=== PATIENT | female | born 1985 | race Hispanic/Latino ===

== ENCOUNTER 2016-12-27 20:55 | Emergency (ER) | payer OTHER ==
[~2016-12-27] VITALS: Ht 154.9 cm; Wt 90.9 kg
[~2016-12-27 20:55] MED LIST: Docusate Sodium PO; Ibuprofen PO; Oxycodone/Acetaminophen PO; PREN1TAB80 PO
[2016-12-27 21:00] VITALS: BP 137/85; PULSE 79; RESP 20; O2SAT 99
--- NOTE | 2016-12-27 21:56 | ED.REPORT ---
HPI-Eye Problem Date of Service December 27, 2016 ED Provider: Dr. Arpit Whitlock D.O. A 31 year old female with a history of hypertension presents to the ED with left eye redness onset this morning upon awakening. Associated symptoms include left eye pain and photophobia. The patient wore her contacts yesterday but did not sleep in them. She denies other symptoms. Nursing Notes Stated Complaint: LEFT EYE INFECTION Chief Complaint: Eye Nursing Notes Reviewed: Yes Allergies: Coded Allergies: No Known Allergies (Unverified Allergy, Unknown, 08/29/14) Scheduled Vits W-Ca,Fe,FA(<1Mg) ( Vitamins) 1 Each Tablet 1 EACH PO DAILY Scheduled PRN ([Docusate Sodium]) 100 MG CAPSULE 100 MG PO BID PRN PRN For Constipation ([Ibuprofen]) 800 MG TABLET 800 MG PO Q8 PRN PRN For Pain ([Oxycodone/Acetaminophen]) 1 TAB TABLET 1-2 TAB PO Q4H PRN PRN For Pain General Time Seen by MD: 21:56 Chief Complaint Left eye affected, Redness Hx Obtained From: Patient Arrived By: Walk-in Sudden in Onset?: Yes Onset Occurred: 21 - 23 hours ago Symptom Duration: Since onset Location: : Eye left Quality: Painful Severity: Current: Moderate Severity: Maximum: Moderate Pertinent Negative: Relieved by nothing Related History: Reports: Contact lens use Immunizations: Unknown Recent Healthcare: No recent doctor visit Past Medical History Past Medical History Reports: Hypertension Past Surgical History none reported Smoking History Never Smoker Social History Alcohol Use: Denies alcohol use Drug Use: Denies drug use Other Social History: Good social support Ambulatory Status Independent Review of Systems Constitutional: Denies: Fever Eyes: Reports: Eye pain left, Photophobia, Redness left Complete sys rev & neg: except as marked. Respiratory: Denies: Non-productive cough, Shortness of breath GI: Denies: Diarrhea, Vomiting Physical Exam Initial Vital Signs Vital Signs (First) Date Time Temp Pulse Resp B/P Pulse Ox O2 Delivery O2 Flow Rate FiO2 12/27/16 21:00 36.8 79 20 137/85 99 Room Air Initial VS: Reviewed Neck: Supple, Full range of motion Skin: Warm, Dry, No cyanosis Neurologic: Alert, Oriented, Nonfocal Psychiatric: Mood/affect normal, Behavior normal, Normal thought content Head / Eyes: Atraumatic, Normocephalic, PERRL Conjunctiva / Sclera: Positive: Injected left, Negative: Chemosis L Trauma - General: Positive: Abrasion (Medial conjunctiva) No evidence of angle closure glaucoma No cells in anterior chamber Complete relief of pain with proparacaine drops General/Constitutional: Awake, Alert ENT: Airway patent, Mucous membranes moist Re-Eval/Medical Decision Med Decision/Clinical Course No corneal abrasion or ulceration. No evidence of keratitis or ecchymosis. She has conjunctivitis. There is a defect in the medial conjunctiva probably where she pulled her contact lens out. I do with things going to do well with topical anti-infectives. She will refrain from wearing contacts until cleared by ophthalmology. Topical Vigamox. Close outpatient follow-up. No cells in the anterior chamber. Source of Hx: Old records Re-Evaluation/Progress : Time of Eval: 22:30 Patient Status: Condition improved Re-Evaluation/Progress Note: Additional physical exam performed. Discussed with patient physical exam findings, diagnosis, and plan for discharge. Follow-up and return to the ER instructions given. Patient agrees with plan for care and all questions were addressed. Counseled Regarding: Diagnosis, Need for follow-up, When/why to return to ED Discharge & Departure Primary Impression: Conjunctivitis Conjunctivitis type: acute Acute conjunctivitis type: bacterial Laterality : left Qualified Code: H10.32 - Unspecified acute conjunctivitis, left eye Additional Impression: Conjunctival abrasion Encounter type: initial encounter Laterality: left Qualified Code: S05.02XA - Injury of conjunctiva and corneal abrasion without foreign body, left eye, initial encounter Disposition: Home Discharge Condition All VS Reviewed: Yes Condition: Improved Patient Instructions: Conjunctivitis (ED) Additional Instructions: No contact lens wearing until the infection is cleared and you have been seen by the eye glass frame polisher. You have an infection of the lining of your eye and it is most likely related to contact lens wearing. Discard your current contact lenses and contact lens coronel. Use fresh lenses and new solution in the future. Apply one drop of the Vigamox every 2 hours for the next 24 hours. Then apply 1 drop 4 times daily for the next 5 days. On Thursday call the referral eye glass frame polisher. Tell them you were seen in the emergency department and have an infection related to contact lens wearing. If you have any problems or any new or worsening symptoms do not hesitate to return to the emergency department. Referrals: Roxanne Barahona MD (PCP) Sabino Cole MD [facility] Attestation Portions of this note were transcribed by Danna Gonzalez. I, Dr. Whitlock, personally performed the history, physical exam, and medical decision-making; I reviewed and confirmed the accuracy of the information in the transcribed note. Signed by: Yelena Wheeler, 12/27/2016, 23:45 copies to: Sabino Cole MD; Roxanne Barahona MD, Todd P DO December 27, 2016 21:56 DANNA GONZALEZ December 27, 2016 22:34
[2016-12-27] MEDS ORDERED: Tetracaine 0.5% 4 mL Ophthalmic Solution LEFT_EYE ONE (22:00)
[2016-12-27] MEDS ORDERED: Fluorescein 0.6 mg Ophthalmic Strip ONE (22:16)
[2016-12-27] MEDS ORDERED: 0.9% Sodium Chloride Inhalation Solution ONE (22:16)
[2016-12-27 23:04] VITALS: BP 137/85; PULSE 79; RESP 20; O2SAT 99
[2016-12-28] MEDS ORDERED: Moxifloxacin 0.5% 3 mL Ophthalmic Solution BOTH_EYES SCH (08:30)
== END 2016-12-27 22:55 | disposition home or self-care (01) ==
LOC: SED 20:55
DX: S05.02XA Injury of conjunctiva and corneal abrasion without foreign body, left eye, initial encounter (principal); H10.32 Unspecified acute conjunctivitis, left eye; X58.XXXA Exposure to other specified factors, initial encounter; Y93.89 Activity, other specified; Y92.9 Unspecified place or not applicable; Y99.8 Other external cause status; I10 Essential (primary) hypertension